=== PATIENT | female | born 1985 | race Caucasian/White ===

== ENCOUNTER 2018-08-22 13:11 | Emergency (ER) | payer OTHER, SELFPAY ==
[2018-08-22 13:18] VITALS: BP 108/70; PULSE 75; RESP 15; TEMP 36.9; O2SAT 100; BMI 22.1
--- NOTE | 2018-08-22 15:30 | ED.PREGNANCY ---
HPI - General Chief complaint: OB/Uterine Contractions Stated complaint: 6 WEEKS PREG, COUGHED/GUSHED BLOOD Time Seen by Provider: 08/22/18 15:20 Source: patient Mode of arrival: ambulatory Limitations: no limitations History of Present Illness HPI Narrative: This is a 33-year-old female comes to the emergency department with vaginal bleeding. She states she has had a cough for about 2 weeks Um and for the last 2 days she has had some spotting each time she coughs. Today she had stronger coughing episode and had a large clot. It was bright red. Patient is about 6 weeks by dates. She has done 3 home test and 1 at the hospital. She has not had any other care or ultrasound so far. This is her 4th , her very 1st ended with a spontaneous miscarriage. The other 2 pregnancies went to term. Patient denies any other medical issues. She has not had any fevers. The cough has been dry. She is not having any chest pain or shortness of breath. She has had some nausea but no vomiting. She has had some mild constipation. No urinary symptoms. Date of Last Menstrual Period: 07/08/18 Patient : Yes Expected Date of Delivery: 04/14/19 Related Data Home Medications Medication Instructions Recorded Confirmed Chromium C Probiotic 1 cap PO QPM 08/22/18 08/22/18 Magnesium C Vitamin C 1 tab PO DAILY 08/22/18 08/22/18 Probiotic 1 cap PO DAILY 08/22/18 08/22/18 multivitamin 1 tab PO QPM 08/22/18 08/22/18 Previous Rx's Medication Instructions Recorded benzonatate [Tessalon Perles] 200 mg PO TID PRN #14 cap 08/22/18 Allergies Allergy/AdvReac Type Severity Reaction Status Date / Time codeine Allergy Verified 08/22/18 13:18 latex Allergy Verified 08/22/18 13:18 adhesive AdvReac Verified 08/22/18 13:18 Review of Systems Review of Systems All systems reviewed & are unremarkable except as noted in HPI and below Constitutional Denies fever(s) Cardiovascular Denies chest pain, Denies irregular heart rhythm, Denies lightheadedness, Denies palpitations, Denies dyspnea, Denies dyspnea on exertion and Denies orthopnea Respiratory Denies change in phlegm color, Denies chest congestion, Reports cough, Denies pain on inspiration, Denies dyspnea, Denies dyspnea on exertion and Denies wheezing Gastrointestinal Gastrointestinal: Denies abdominal pain, Denies change in bowel habits, Reports constipation (mild), Denies diarrhea, Reports nausea and Denies vomiting Genitourinary Reports abnormal vaginal bleeding ( 6 weeks), Denies hematuria, Denies urinary frequency, Denies dysuria, Reports pelvic pain, Denies flank pain, Denies urinary incontinence, Denies urinary urgency, Denies vaginal discharge and Denies vaginal odor Endocrine Denies palpitations Allergic/Immunologic Denies wheezing PMFSH - Past Medical History Medical history: Reports no medical history Surgical history: Reports no surgical history Date of Last Menstrual Period: 07/08/18 Patient : Yes Expected Date of Delivery: 04/14/19 Exam Narrative Exam Narrative: GENERAL: Alert and oriented x three, thin, well-appearing female in mild distress. HEENT: Head normocephalic, atraumatic, EOMI, pupils reactive, face symmetric, moist mucous membranes NECK: Supple, full range of motion CARDIOVASCULAR: Regular rate and rhythm without murmurs, rubs or gallops. RESPIRATORY: Breath sounds equal bilaterally, no wheezes rales or rhonchi. Patient does have a dry cough when she takes a deep inhalation. It is nonproductive. No tachypnea. She speaks in full sentences. ABDOMEN: Soft, nontender. Normoactive bowel sounds all 4 quadrants. No guarding or rebound, rigidity, no mass : No CVA tenderness EXTREMITIES: Normal range of motion, no clubbing or edema. Neurovascularly intact NEUROLOGICAL: Cranial nerves II through XII grossly intact. Moving all extremities SKIN: Warm, dry, no petechiae, no rashes or lesions. Initial Vital Signs Initial Vital Signs: Vital Signs Temperature 98.4 F 08/22/18 13:18 Pulse Rate 75 08/22/18 13:18 Respiratory Rate 15 08/22/18 13:18 Blood Pressure 108/70 08/22/18 13:18 Pulse Oximetry 100 08/22/18 13:18 Course Orders Ordered: ED Orders 08/22/18 15:29 US OB <= 14 weeks fetus Stat 08/22/18 15:40 ABO RH Type Stat Complete Blood Count AUTO DIFF Stat Comprehensive Metabolic Panel Stat HCG Quantitative Stat Vital Signs - 8 hr 08/22/18 13:18 08/22/18 17:37 Temperature 98.4 F Pulse Rate 75 74 Respiratory Rate 15 14 Blood Pressure 108/70 Blood Pressure [Left Arm] 102/72 Pulse Oximetry 100 100 MDM - OB/Uterine Contractions Lab Data Attestation: I reviewed the patient's lab results. Result diagrams: 08/22/18 15:40 08/22/18 15:40 Lab Results 08/22/18 08/22/18 08/22/18 Range/Units 15:40 15:40 15:40 WBC 9.0 (4.5-11.0) X10^3/uL RBC 4.21 (4.0-5.2) X10^6/uL Hgb 12.7 (12.0-16.0) g/dL Hct 36.7 (36-46) % MCV 87.2 (80-100) fL MCH 30.2 (26-34) PG MCHC 34.6 (30-36) % RDW 13.0 (11.6-14.8) % Plt Count 143 L (150-400) X10^3/uL Neut % (Auto) 73.9 (50-75) % Lymph % (Auto) 19.5 L (25-40) % [place] % (Auto) 4.7 (3-14) % Eos % (Auto) 1.4 L (2-4) % Baso % (Auto) 0.5 (0-2) % Neut # (Auto) 6700 H (5695-5179) /uL Sodium 140 (137-145) mmol/L Potassium 4.1 (3.4-5.1) mmol/L Chloride 104 (98-107) mmol/L Carbon Dioxide 24 (22-32) mmol/L BUN 6 L (7-17) mg/dL Creatinine 0.50 L (0.52-1.04) mg/dL Estimated GFR > 60.0 (>60) mL/min BUN/Creatinine Ratio 12.0 (6-22) Glucose 85 (70-100) mg/dL Calcium 8.8 (8.4-10.2) mg/dL Total Bilirubin 1.4 H (0.2-1.3) mg/dL AST 20 (14-36) IU/L ALT 26 (9-52) IU/L Alkaline Phosphatase 37 L (38-126) U/L Total Protein 7.3 (6.3-8.2) g/dL Albumin 4.2 (3.5-5.0) g/dL Globulin 3.1 (1.7-4.1) g/dL Albumin/Globulin Ratio 1.4 (1.0-2.8) HCG, Quant 25591 mIU/mL Blood Type A Positive Urine Dip Bedside Urine Glucose Negative Bedside Urine Bilirubin - Negative Bedside Urine Ketone +++ 80 Urine Specific [place] 1.015 Bedside Urine Occult Blood +/- Bedside Urine pH 6.5 Bedside Urine Protein - Negative Bedside Urine Urobilinogen - Negative Bedside Urine Nitrite - Negative Bedside Urine Leukocytes - Negative Esterase Imaging Data US: Radiologist's impression: [address] [address] Ultrasound Report Signed Patient: Zohra Romano RMR#: [id number] : 1985Acct:[id number] Age/Sex: 33 / FDate of Service: 08/22/18 Loc: ED Accession Number: [id number] Procedure: US OB <= 14 weeks fetus Ordering Provider: Farzaneh Thornton D.O. PROCEDURE: US OB <= 14 WEEKS FETUS INDICATIONS: vaginal bleeding, pos preg. 6 weeks by dates. OUTSIDE/PRIOR DATING DATA: Last menstrual period (LMP): Unknown. LMP-based estimated date of delivery (JUDIE): Unknown. First dating scan (date and location): 08/22/18, [facility]. Estimated date of delivery (JUDIE) from first dating scan: 04/12/19. TECHNIQUE: Real-time scanning was performed of the fetus and maternal pelvic organs, with image documentation. Endovaginal scanning was also performed to better visualize the fetus and maternal ovaries. COMPARISON: None. FINDINGS: Embryo: An intrauterine gestational sac is identified. Duck-rump length measured at 7 mm for an estimated gestational age of 6 weeks 5 days. heart rate measured at 118 beats per minute. There is a 2.1 x 2.5 x 3.2 cm mixed echogenic collection within the endometrial canal inferior to the gestational sac which demonstrates no vascularity on Doppler ultrasound. Measurement variability in dating: +/- 4 weeks by LMP, +/- 7 days by mean sac diameter (use before 6 weeks gestation if crown-rump length not able to be measured), +/- 5 days by crown-rump length (up to 8 weeks 6 days gestation), +/- 7 days by crown-rump length (up to 13 weeks 6 days gestation). Maternal organs: Imaged portions of the bilateral adnexa are unremarkable. Limited images through the kidneys demonstrate no hydronephrosis. IMPRESSION: #1. Single living intrauterine gestation with crown-rump length of 7 mm for an estimated gestational age of 6 weeks 5 days and a measured heart rate of 118 beats per minute. #2. 3.2 x 2.5 x 2.1 cm mixed echogenic collection within the endometrial canal inferior to the gestational sac consistent with blood products/hemorrhage. Dictated by: Jacob Malone M.D. on 08/22/2018 at 17:48 Approved by: Jacob Malone M.D. on 08/22/2018 at 17:53 MDM Narrative Medical decision making narrative: Patient has not had any care, she has had mild pelvic pain with vaginal bleeding in an early , US was ordered to rule out ectopic. Patient is unsure of RH status, CBC and Quant HCG ordered. Patient is A+, no rhogram given. She has retrochorionic hemorrhage but has intrauterine . Patient labs are otherwise stable. Vitals stable. Discussed with Dr. Santiago, plan for follow up. They will call to set up appointment with patient. Patient continues to have cough will give Tessalon Perles to help with this. She does not have any changes on physical exam that make me concerned for pneumonia or bronchitis that requires other medications. URine shows no infection. Discharge Plan Departure Patient Disposition: Home Clinical Impression: Vaginal bleeding affecting early Discharge Date/Time: 08/22/18 18:21 Interventions: ED Discharge Assessment Last Done: 08/22/18 18:21 Instructions: DI for Vaginal Bleeding During Activity Restrictions/Additional Instructions: Follow up for recheck with your obstetrician and gynaecologist or Dr. Santiago in the next 24-48 hours for recheck. Contact information is below. You may take Tylenol up to a 1000 mg every 8 hr as needed for pain. Take Tessalon Perles as needed for cough. You may also use hot water with honey. Return to the emergency room for fevers, shortness of breath, lightheadedness or passing out, chest pain, vaginal bleeding that is more than 1 pad per hour, severe abdominal pain or other new or concerning symptoms. Prescriptions: New benzonatate [Tessalon Perles] 100 mg capsule 200 mg PO TID PRN (Reason: cough) Qty: 14 RF: 0 No Action multivitamin Tablet 1 tab PO QPM RF: 0 Chromium C Probiotic 1 cap PO QPM RF: 0 Magnesium C Vitamin C 1 tab PO DAILY RF: 0 Probiotic 1 cap PO DAILY RF: 0 Referrals: Lisy Santiago MD [Physician] - 08/24/18 12:00 am (Follow up for recheck and further nuclear medicine chief technologist care.) Linda Lund DO [Primary Care Provider] -
--- NOTE | 2018-08-22 15:34 | PC.NURSE ---
Brought patient glass of ice water per Dr. vaughn
[2018-08-22 15:44] LABS: Add Manual Diff / Slide Review NO; Basophils Percent Auto 0.5 % (0-2); Eosinophils Percent Auto 1.4 % (2-4); Hematocrit 36.7 % (36-46); Hemoglobin 12.7 g/dL (12.0-16.0); Lymphocytes Percent Auto 19.5 % (25-40); Mean Corpuscular HGB Conc 34.6 % (30-36); Mean Corpuscular Hemoglobin 30.2 PG (26-34); Mean Corpuscular Volume 87.2 fL (80-100); Monocytes Percent Auto 4.7 % (3-14); Neutrophils Absolute Auto 6700 /uL (3000-5900); Neutrophils Percent Auto 73.9 % (50-75); Platelet Count 143 X10^3/uL (150-400); Red Blood Cell Count 4.21 X10^6/uL (4.0-5.2)
[2018-08-22 15:56] LABS: Alanine Aminotransferase 26 IU/L (9-52); Albumin 4.2 g/dL (3.5-5.0); Albumin Globulin Ratio 1.4 (1.0-2.8); Alkaline Phosphatase 37 U/L (38-126); Aspartate Aminotransferase 20 IU/L (14-36); Bilirubin Total 1.4 mg/dL (0.2-1.3); Blood Urea Nitrogen 6 mg/dL (7-17); Calcium 8.8 mg/dL (8.4-10.2); Carbon Dioxide 24 mmol/L (22-32); Chloride 104 mmol/L (98-107); Estimated Glomerular Filt Rate > 60.0 mL/min (>60); Globulin 3.1 g/dL (1.7-4.1); Glucose 85 mg/dL (70-100); HEMOLYSIS < 15 (0-50); Potassium 4.1 mmol/L (3.4-5.1); Sodium 140 mmol/L (137-145); Total Protein 7.3 g/dL (6.3-8.2)
[2018-08-22 16:40] LABS: HCG Quantitative /Beta subunit 82975 mIU/mL
[2018-08-22 17:37] VITALS: BP 102/72; PULSE 74; RESP 14; O2SAT 100
--- NOTE | 2018-08-22 17:42 | PC.NURSE ---
Pt pushed call light. Told nurse she felt a gush of something come out of her vagina. Nurse checked pad and found a small amount of blood on pad.
== END 2018-08-22 18:21 | disposition home or self-care (01) ==
PROVIDERS: Emergency Provider Emergency Medicine; PCP Family Medicine
DX: O20.9 Hemorrhage in early pregnancy, unspecified (principal); Z3A.01 Less than 8 weeks gestation of pregnancy
CPT/HCPCS: 36415; 76801; 76817; 80053; 81003; 84702; 85025; 86900; 86901; 99282; 99284